=== PATIENT | male | born 1955 | race African-American/Black ===

== ENCOUNTER 2017-04-15 05:55 | Inpatient (IN) | payer OTHER ==
[2017-04-01 08:34] LABS: HEMATOCRIT 47.6 % (42.0-52.0); HEMOGLOBIN 15.8 gm/dL (14.0-18.0); MCH 29.2 pg (26.0-34.0); MCHC 33.2 g/dL (28.0-37.0); MCV 87.9 fL (80.0-100.0); RBC 5.42 mil/uL (4.50-6.00); RDW 13.9 % (10.5-14.5); WBC 5.3 thou/uL (4.0-11.0)
[2017-04-01 08:37] LABS: URINE BILIRUBIN NEGATIVE (Negative); URINE BLOOD NEGATIVE (Negative); URINE COLOR YELLOW; URINE GLUCOSE-RANDOM* NEGATIVE (Negative); URINE KETONES NEGATIVE (Negative); URINE LEUKOCYTES-REFLEX NEGATIVE (Negative); URINE PROTEIN (DIPSTICK) NEGATIVE (Negative); URINE UROBILINOGEN 0.2 E.U./dl (0.2-1.0)
[2017-04-01 08:41] LABS: CALCIUM 9.4 mg/dL (8.5-10.1); CREATININE 1.1 mg/dL (0.7-1.3); POTASSIUM 3.9 mmol/L (3.5-5.1)
[2017-04-01 09:06] LABS: PROTIME 10.5 Seconds (9.3-11.4)
[~2017-04-15] VITALS: Ht 193 cm; Wt 137.9 kg
--- NOTE | ~2017-04-15 | EKG ---
[address] [place] [employer] [place] [address] ELECTROCARDIOGRAM REPORT Name: JIMI BLANCAS Room #: PRE IN [facility]#: [id number] Admission: Attend Phys: Harpreet Schneider MD Discharge: Date of : 53 Report #: [id number] THIS REPORT FOR: //name// [facility] Test Date: 2017-04-01 Test Time: 08:25:56 Pat Name: JIMI BLANCAS Department: Room: Gender: [employer] Processing Operator: CHALO SPANGLER : 1955 Requested By: Harpreet Schneider Order Number: [id number] MD: Anderson Lea Measurements Intervals [place] Rate: 88 P: 64 ID: [id number] QRS: 64 QRSD: 82 T: 0 QT: 356 QTc: 431 Interpretive Statements Sinus rhythm Borderline T abnormalities, inferior leads No previous ECG available for comparison Electronically Signed On 04-01-2017 8:59:25 CDT by Anderson Lea [email or web address] <ELECTRONICALLY SIGNED> By: Anderson Lea MD, [facility] 04/01/17 0859 0825 0825 Anderson Lea MD, FAC /EPI
[~2017-04-15 05:55] MED LIST: CALCIUM 600 +1 EAC1 PO; DIOVAN HCT 1601 EACH PO; MAGNESIUM OXID400 MG PO; MULTIVITAMINS PO; SIMVASTATIN40 MG PO; ZETIA10 MG PO
[2017-04-15 09:47] VITALS: BP 138/78
[2017-04-15 15:26] VITALS: BP 136/89
[2017-04-15 15:30] VITALS: BP 138/94; BP 144/93
[2017-04-15 16:00] VITALS: BP 151/97
[2017-04-15 16:15] VITALS: BP 148/98
[2017-04-15 20:00] VITALS: BP 134/77
[2017-04-16 00:03] VITALS: BP 132/72
[2017-04-16 04:00] VITALS: BP 106/68
[2017-04-16 07:04] LABS: ABSOLUTE NEUTROPHILS 9.4 thou/uL (1.4-8.2); BASOPHILS 0.1 % (0.0-2.0); EOSINOPHILS 0.1 % (0.0-3.0); HEMATOCRIT 43.5 % (42.0-52.0); HEMOGLOBIN 14.5 gm/dL (14.0-18.0); LYMPHOCYTES 12.6 % (24.0-44.0); MCH 29.6 pg (26.0-34.0); MCHC 33.2 g/dL (28.0-37.0); MONOCYTES 10.5 % (1.0-8.0); PLATELET COUNT 159 thou/uL (150-400); POLYS 76.7 % (36.0-66.0); RBC 4.89 mil/uL (4.50-6.00); RDW 13.9 % (10.5-14.5); WBC 12.2 thou/uL (4.0-11.0)
[2017-04-16 07:07] LABS: MANUAL DIFF NO
[2017-04-16 07:12] LABS: CALCIUM 8.9 mg/dL (8.5-10.1); CREATININE 1.2 mg/dL (0.7-1.3); MAGNESIUM 1.6 mg/dL (1.8-2.4)
[2017-04-16 07:22] VITALS: BP 112/71
[2017-04-16 15:06] VITALS: BP 118/68
[2017-04-16 19:05] VITALS: BP 130/83
[2017-04-17 04:41] VITALS: BP 141/86
[2017-04-17 05:44] LABS: ABSOLUTE NEUTROPHILS 5.5 thou/uL (1.4-8.2); BASOPHILS 0.4 % (0.0-2.0); EOSINOPHILS 2.6 % (0.0-3.0); HEMATOCRIT 42.5 % (42.0-52.0); HEMOGLOBIN 14.2 gm/dL (14.0-18.0); LYMPHOCYTES 28.6 % (24.0-44.0); MCH 29.6 pg (26.0-34.0); MCHC 33.3 g/dL (28.0-37.0); MCV 88.8 fL (80.0-100.0); MONOCYTES 11.5 % (1.0-8.0); PLATELET COUNT 136 thou/uL (150-400); POLYS 56.9 % (36.0-66.0); RBC 4.79 mil/uL (4.50-6.00); RDW 14.1 % (10.5-14.5); WBC 9.6 thou/uL (4.0-11.0)
[2017-04-17 05:50] LABS: CALCIUM 8.4 mg/dL (8.5-10.1); CREATININE 1.2 mg/dL (0.7-1.3); MAGNESIUM 1.6 mg/dL (1.8-2.4); POTASSIUM 3.7 mmol/L (3.5-5.1)
[2017-04-17 05:53] LABS: MANUAL DIFF NO
[2017-04-17 07:20] VITALS: BP 142/94
[2017-04-17 19:08] VITALS: BP 146/81
[2017-04-18 02:11] VITALS: BP 144/86
[2017-04-18 04:26] LABS: ABSOLUTE NEUTROPHILS 5.3 thou/uL (1.4-8.2); BASOPHILS 0.6 % (0.0-2.0); EOSINOPHILS 3.2 % (0.0-3.0); HEMATOCRIT 41.8 % (42.0-52.0); HEMOGLOBIN 14.2 gm/dL (14.0-18.0); LYMPHOCYTES 29.5 % (24.0-44.0); MCH 29.7 pg (26.0-34.0); MCV 87.6 fL (80.0-100.0); MONOCYTES 10.4 % (1.0-8.0); PLATELET COUNT 146 thou/uL (150-400); POLYS 56.3 % (36.0-66.0); RBC 4.77 mil/uL (4.50-6.00); RDW 13.6 % (10.5-14.5); WBC 9.4 thou/uL (4.0-11.0)
[2017-04-18 04:36] LABS: MANUAL DIFF NO
[2017-04-18] MEDS ORDERED: XARELTO10 MG PO (06:48)
[2017-04-18] MEDS ORDERED: PERCOCET 10-321 EACH PO (06:48)
[2017-04-18 07:58] VITALS: BP 144/86
[2017-04-18 08:38] VITALS: BP 139/93
[2017-04-18 10:22] VITALS: BP 144/86
[2017-04-18 11:21] VITALS: BP 144/86
[2017-04-18 14:42] VITALS: BP 144/86
== END 2017-04-18 13:30 | disposition home health service (06) | DRG 470 ==
LOC: TBA 05:55 → 5S 05:55
PROVIDERS: Internal Medicine; Orthopaedic Surgery
PROC: 0SRD0JZ Replacement of Left Knee Joint with Synthetic Substitute, Open Approach (ICD-10-PCS; principal; 2017-04-15)
DX: M17.12 Unilateral primary osteoarthritis, left knee (principal); I10 Essential (primary) hypertension; E78.5 Hyperlipidemia, unspecified; D72.829 Elevated white blood cell count, unspecified; E83.42 Hypomagnesemia; G47.30 Sleep apnea, unspecified; Z85.46 Personal history of malignant neoplasm of prostate; Z82.61 Family history of arthritis; Z80.8 Family history of malignant neoplasm of other organs or systems; Z90.79 Acquired absence of other genital organ(s)
CPT/HCPCS: 10785; 50010; 50101; 50415; 50612; 50954; 51130; 51225; 51320; 51412; 51771; 52001; 52282; 53000; 53078; 53364; 56525; 56527; 62110; 62900; 64042; 64043; 70005

== ENCOUNTER 2017-04-22 04:45 | Emergency (ER) | payer OTHER ==
[~2017-04-22] VITALS: Ht 193 cm; Wt 135.6 kg
[~2017-04-22 04:45] MED LIST changes: +PERCOCET 10-321 EACH PO; +XARELTO10 MG PO
== END 2017-04-22 06:09 | disposition home or self-care (01) ==
LOC: ER 04:45
DX: Z48.01 Encounter for change or removal of surgical wound dressing (principal); I10 Essential (primary) hypertension; E78.00 Pure hypercholesterolemia, unspecified; G47.30 Sleep apnea, unspecified; Z85.46 Personal history of malignant neoplasm of prostate; Z96.652 Presence of left artificial knee joint